=== PATIENT | female | born 1935 | race Caucasian/White ===

== ENCOUNTER 2021-05-18 16:49 | Inpatient (IN) | payer MEDICARE, OTHER ==
[~2021-05-18] VITALS: Ht 162.6 cm; Wt 89.5 kg
[~2021-05-18 16:49] MED LIST: ASPIR 8181 MG PO; BACTRIM DS TAB1 EACH PO; KEFLEX500 MG PO; LEVAQUIN500 MG PO; MACROBID 100 M100 MG PO; NITROSTAT0.4 MG SL
[2021-05-18 19:25] LABS: HEMOGLOBIN 13.8 gm/dl (12.3-15.3); RED BLOOD COUNT 4.89 M/UL (4.00-5.10); WHITE BLOOD COUNT 16.7 K/UL (4.5-11.0)
[2021-05-19 04:20] LABS: HEMOGLOBIN 11.9 gm/dl (12.3-15.3); WHITE BLOOD COUNT 13.8 K/UL (4.5-11.0)
[2021-05-19 04:24] LABS: RED BLOOD COUNT 4.29 M/UL (4.00-5.10)
[2021-05-19] MEDS ORDERED: CARVEDILOL25 MG PO (10:21)
[2021-05-19] MEDS ORDERED: ESCITALOPRAM OX10 MG PO (10:22)
[2021-05-19] MEDS ORDERED: DONEPEZIL HCL10 MG PO (10:22)
[2021-05-19] MEDS ORDERED: LOSARTAN POTASS50 MG PO (10:22)
[2021-05-19] MEDS ORDERED: ISOSORBIDE MONO30 MG PO (10:22)
[2021-05-19] MEDS ORDERED: VITAMIN D350 MC3 PO (10:23)
[2021-05-19] MEDS ORDERED: NAMENDA10 MG PO (10:23)
[2021-05-19] MEDS ORDERED: TRADJENTA5 MG PO (10:24)
[2021-05-19] MEDS ORDERED: METFORMIN HCL500 M2 PO (10:24)
[2021-05-19] MEDS ORDERED: GABAPENTIN300 MG PO (10:24)
[2021-05-19] MEDS ORDERED: SPIRIVA HANDIH18 MCG INH (10:25)
[2021-05-19] MEDS ORDERED: PROTONIX 40 MG40 M1 PO (10:25)
[2021-05-19] MEDS ORDERED: VOLTAREN ARTHRI20 GM TOP (10:25)
[2021-05-19] MEDS ORDERED: ATORVASTATIN CA40 MG PO (10:26)
[2021-05-19] MEDS ORDERED: ACETAMINOPHEN500 MG PO (10:26)
[2021-05-19] MEDS ORDERED: FUROSEMIDE20 MG PO (10:27)
[2021-05-19] MEDS ORDERED: TRAMADOL HCL50 MG PO (10:27)
[2021-05-19] MEDS ORDERED: RESTASIS1 EACH OU (10:27)
[2021-05-19] MEDS ORDERED: CICLOPIROX6.6 ML TP (10:29)
[2021-05-19] MEDS ORDERED: ZINC OXIDE60 GM TOP (10:31)
[2021-05-19] MEDS ORDERED: [UNRECOGNIZED DRUG - OTHER] TOP (10:33)
[2021-05-19] MEDS ORDERED: HYDROCODON-ACE1 EAC2 PO (17:26)
[2021-05-19] MEDS ORDERED: LOVENOX30 MG/0.3 SQ (17:26)
[2021-05-20 07:43] LABS: RED BLOOD COUNT 3.51 M/UL (4.00-5.10); WHITE BLOOD COUNT 11.9 K/UL (4.5-11.0)
[2021-05-20 07:44] LABS: HEMOGLOBIN 9.7 gm/dl (12.3-15.3)
[2021-05-20] MEDS ORDERED: GABAPENTIN300 MG PO (10:00)
--- NOTE | 2021-05-20 15:33 | NUR ---
RN HAD department director ATTEMPT TO PUT PATIENT BACK TO BED, THEY ATTEMPTED TO BUT WERE UNABLE. RN CALLED PHYSICAL THERAPY TO ASSIST department director WITH TRANSFER. PHYSICAL THERAPY AND department director GOT PATIENT INTO BED BUT PATIENT WAS NOTED TO BE LETHARGIC AND SLOW TO RESPOND TO BOTH VERBAL AND TACTILE STIMULI. RN HAD STAFF ASSIST IN GETTING BLOOD PRESSURE AND BLOOD GLUCOSE. RN HAD GIVEN PATIENT A NARCOTIC EARLIER SO PRN NARCAN WAS GIVEN. RN CALLED DR. POP TO ASSESS PATIENT AND NOTIFIED STAFF OF PATIENT'S CODE STATUS. PATIENT NOTED TO BE SPEAKING AND ANSWERING QUESTIONS APPROPRIATE TO BASELINE. MD ASSESSED PATIENT AND ORDERED RN TO CANCEL DISCHARGE ORDER AND STATED SHE WOULD REVIEW PATIENT'S CHART. BED LOCKED AND LOW. CALL LIGHT WITHIN REACH.
[2021-05-21 07:05] LABS: RED BLOOD COUNT 3.21 M/UL (4.00-5.10); WHITE BLOOD COUNT 14.7 K/UL (4.5-11.0)
[2021-05-21] MEDS ORDERED: ACETAMINOPHEN500 MG PO (10:03)
[2021-05-21] MEDS ORDERED: NEURONTIN100 MG PO (12:14)
--- NOTE | 2021-05-21 13:22 | NUR ---
RN CALLED REPORT TO KALI ROMEO. RN INFORMED AGUEDA THAT BLADDER TRAINING MUST BE INITIATED PRIOR TO REMOVAL OF AVILA CATHETER AT RECEIVING FACILITY.
--- NOTE | 2021-05-21 13:57 | NUR ---
RN CALLED REPORT TO [facility].
== END 2021-05-21 15:14 | DRG 480 ==
LOC: ER1 16:49 → PROG CARE 18:59 → CDU 18:59 → M/S 18:59 → PROG CARE 23:00 → M/S 05-19 19:44
PROVIDERS: Emergency Medicine; Orthopaedic Surgery; Physician Assistant; ADMIT Internal Medicine
PROC: 0QS706Z Reposition Left Upper Femur with Intramedullary Internal Fixation Device, Open Approach (ICD-10-PCS; principal; 2021-05-19 11:00)
DX: S72.142A Displaced intertrochanteric fracture of left femur, initial encounter for closed fracture (principal); J96.21 Acute and chronic respiratory failure with hypoxia; I69.351 Hemiplegia and hemiparesis following cerebral infarction affecting right dominant side; I13.0 Hypertensive heart and chronic kidney disease with heart failure and stage 1 through stage 4 chronic kidney disease, or unspecified chronic kidney disease; Z20.822 Contact with and (suspected) exposure to COVID-19; W01.0XXA Fall on same level from slipping, tripping and stumbling without subsequent striking against object, initial encounter; I25.10 Atherosclerotic heart disease of native coronary artery without angina pectoris; J44.9 Chronic obstructive pulmonary disease, unspecified; K21.9 Gastro-esophageal reflux disease without esophagitis; E11.51 Type 2 diabetes mellitus with diabetic peripheral angiopathy without gangrene; E11.40 Type 2 diabetes mellitus with diabetic neuropathy, unspecified; I73.9 Peripheral vascular disease, unspecified; Z96.619 Presence of unspecified artificial shoulder joint; R32 Unspecified urinary incontinence; I16.0 Hypertensive urgency; F03.90 Unspecified dementia, unspecified severity, without behavioral disturbance, psychotic disturbance, mood disturbance, and anxiety; M81.0 Age-related osteoporosis without current pathological fracture; N18.30 Chronic kidney disease, stage 3 unspecified; G93.89 Other specified disorders of brain; E11.22 Type 2 diabetes mellitus with diabetic chronic kidney disease; Z66 Do not resuscitate; N28.1 Cyst of kidney, acquired; F32.A Depression, unspecified; Z90.710 Acquired absence of both cervix and uterus; Z90.49 Acquired absence of other specified parts of digestive tract; Z88.0 Allergy status to penicillin; Z88.8 Allergy status to other drugs, medicaments and biological substances; Z79.82 Long term (current) use of aspirin; Z79.899 Other long term (current) drug therapy; Z79.84 Long term (current) use of oral hypoglycemic drugs
CPT/HCPCS: 0240U; 36415; 70450; 71045; 71275; 72125; 72128; 72131; 72192; 73502; 76000; 80048; 80053; 80076; 81001; 82550; 82553; 82962; 83735; 84484; 85025; 85027; 85379; 85610; 86850; 86900; 86901; 87040; 87086; 92610; 93005; 94640; 94664; 94760; 96374; 96375; 97110; 97110-GP-CQ; 97162; 97166; 97530; 97530-GP-CQ; 99284; C1713; J0690; J1100; J1650; J2270; J2310; J2370; J2405; J2704; J3010; J7030; J7120; Q9967

== ENCOUNTER → 2021-07-15 | Outpatient (CLI) | payer MEDICARE, OTHER ==
[~2021-07-15] MED LIST changes: +ACETAMINOPHEN500 MG PO; +ATORVASTATIN CA40 MG PO; +CARVEDILOL25 MG PO; +CICLOPIROX6.6 ML TP; +DONEPEZIL HCL10 MG PO; +ESCITALOPRAM OX10 MG PO; +FUROSEMIDE20 MG PO; +GABAPENTIN300 MG PO; +HYDROCODON-ACE1 EAC2 PO; +ISOSORBIDE MONO30 MG PO; +LOSARTAN POTASS50 MG PO; +LOVENOX30 MG/0.3 SQ; +METFORMIN HCL500 M2 PO; +NAMENDA10 MG PO; +NEURONTIN100 MG PO; +PROTONIX 40 MG40 M1 PO; +RESTASIS1 EACH OU; +SPIRIVA HANDIH18 MCG INH; +TRADJENTA5 MG PO; +TRAMADOL HCL50 MG PO; +VITAMIN D350 MC3 PO; +VOLTAREN ARTHRI20 GM TOP; +ZINC OXIDE60 GM TOP; +[UNRECOGNIZED DRUG - OTHER] TOP
[2021-07-15 17:24] LABS: RED BLOOD COUNT 3.6 M/UL (4.00-5.10); WHITE BLOOD COUNT 8.4 K/UL (4.5-11.0)
[2021-07-15 17:51] LABS: BUN/CREATININE RATIO 29 (0-10)
== END ==
LOC: LAB 16:53
PROVIDERS: Emergency Medicine
DX: R41.82 Altered mental status, unspecified (principal)
CPT/HCPCS: 80053; 85025

== ENCOUNTER 2021-07-21 11:14 | Inpatient (IN) | payer MEDICARE, OTHER ==
[~2021-07-21] VITALS: Ht 162.6 cm; Wt 78.0 kg
[2021-07-21 11:43] LABS: HEMOGLOBIN 11.4 gm/dl (12.3-15.3); RED BLOOD COUNT 4.12 M/UL (4.00-5.10); WHITE BLOOD COUNT 12.4 K/UL (4.5-11.0)
[2021-07-21 12:04] LABS: BUN/CREATININE RATIO 37 (0-10)
[2021-07-21] MEDS ORDERED: TYLENOL EXTRA500 MG PO (15:48)
[2021-07-21] MEDS ORDERED: HYDROCODON-ACE1 EAC4 PO (15:50)
[2021-07-21] MEDS ORDERED: TRAMADOL HCL50 MG PO (15:52)
[2021-07-21] MEDS ORDERED: ARTIFICIAL TEAR15 M6 OU (15:52)
[2021-07-21] MEDS ORDERED: SODIUM CHLORIDE3 ML INH (15:53)
[2021-07-21] MEDS ORDERED: MEGESTROL400 MG/12 PO (15:53)
[2021-07-22 04:19] LABS: HEMOGLOBIN 11.3 gm/dl (12.3-15.3); RED BLOOD COUNT 4.03 M/UL (4.00-5.10); WHITE BLOOD COUNT 12.8 K/UL (4.5-11.0)
[2021-07-22 04:30] LABS: BUN/CREATININE RATIO 35 (0-10)
[2021-07-22 12:34] LABS: CANDIDA ALBICANS Not Detected (Negative); CANDIDA KRUSEI Not Detected (Negative); CANDIDA TROPICALIS Not Detected (Negative); ESCHERICHIA COLI Not Detected (Negative); HAEMOPHILUS INFLUENZAE Not Detected (Negative); KLEBSIELLA OXYTOCA Not Detected (Negative); KLEBSIELLA PNEUMONIAE Not Detected (Negative); KPC-CARBAPENEM-RESISTANCE GENE Not Detected (Negative); PROTEUS Not Detected (Negative); PSEUDOMONAS AERUGINOSA Not Detected (Negative); SERRATIA MARCESANS Not Detected (Negative); STAPHYLOCOCCUS Not Detected (Negative); STAPHYLOCOCCUS AUREUS Not Detected (Negative); STREP AGALACTIAE (GROUP B) Not Detected (Negative); STREP PYOGENES (GROUP A) Not Detected (Negative); STREPTOCOCCUS Not Detected (Negative); vanA/B (VANCOMYCIN RESIST GENE Not Detected (Negative)
--- NOTE | 2021-07-22 18:50 | NUR ---
PT'S SON VISITED TODAY HE TALKED I LENGTH ABOUT HIS MOTHERS WISHES THAT WERE TO NOT BE HOOKED TO ANYTHING LIKE A VENT OR HAVE TUBE IN HER BELLY. HE ASKED THAT WE NOT TRY TO PLACE ANOTHER NG TUBE. I ASKED HIM TO PLEASE VOICE HIS THOUGHTS AND WISHES WITH DR DAVIS WHEN SHE MADE ROUNDS THIS MORNING.
[2021-07-23 11:59] LABS: HEMOGLOBIN 11.6 gm/dl (12.3-15.3); RED BLOOD COUNT 4.15 M/UL (4.00-5.10); WHITE BLOOD COUNT 10.5 K/UL (4.5-11.0)
[2021-07-23 12:43] LABS: BUN/CREATININE RATIO 21 (0-10)
[2021-07-24 06:34] LABS: HEMOGLOBIN 10.4 gm/dl (12.3-15.3); RED BLOOD COUNT 3.78 M/UL (4.00-5.10)
[2021-07-24 06:38] LABS: WHITE BLOOD COUNT 7.2 K/UL (4.5-11.0)
[2021-07-24 06:54] LABS: BUN/CREATININE RATIO 21 (0-10)
[2021-07-25 04:42] LABS: BUN/CREATININE RATIO 20 (0-10)
[2021-07-26 04:59] LABS: BUN/CREATININE RATIO 13 (0-10)
[2021-07-27 04:09] LABS: BUN/CREATININE RATIO 9 (0-10)
[2021-07-28 06:53] LABS: BUN/CREATININE RATIO 9 (0-10)
[2021-07-29 02:59] LABS: HEMOGLOBIN 10.5 gm/dl (12.3-15.3); RED BLOOD COUNT 3.68 M/UL (4.00-5.10); WHITE BLOOD COUNT 8.2 K/UL (4.5-11.0)
[2021-07-29 03:12] LABS: BUN/CREATININE RATIO 10 (0-10)
[2021-07-30] MEDS ORDERED: HYDROCODON-ACE1 EAC4 PO (08:55)
[2021-07-30] MEDS ORDERED: NORVASC5 MG PO (08:55)
[2021-07-30] MEDS ORDERED: STIMULANT LAXA1 EACH PO (08:55)
[2021-07-30] MEDS ORDERED: POTASSIUM CHLO10 ME1 PO (08:59)
== END 2021-07-30 15:56 | DRG 871 ==
LOC: ER1 11:14 → MED SURG 4 14:17 → CDU 14:17 → MED SURG 4 16:32
PROVIDERS: Emergency Medicine; Internal Medicine; Internal Medicine Infectious Disease; Physician Assistant; ADMIT Internal Medicine
PROC: 0DH63UZ Insertion of Feeding Device into Stomach, Percutaneous Approach (ICD-10-PCS; principal; 2021-07-21)
PROC: 8E0ZXY6 Isolation (ICD-10-PCS; 2021-07-21)
PROC: 3E0333Z Introduction of Anti-inflammatory into Peripheral Vein, Percutaneous Approach (ICD-10-PCS; 2021-07-21)
PROC: 3E03329 Introduction of Other Anti-infective into Peripheral Vein, Percutaneous Approach (ICD-10-PCS; 2021-07-21)
PROC: B24BZZZ Ultrasonography of Heart with Aorta (ICD-10-PCS; 2021-07-29)
DX: A41.89 Other specified sepsis (principal); U07.1 COVID-19; G93.41 Metabolic encephalopathy; J18.9 Pneumonia, unspecified organism; I50.33 Acute on chronic diastolic (congestive) heart failure; J96.11 Chronic respiratory failure with hypoxia; N30.00 Acute cystitis without hematuria; E86.0 Dehydration; R13.10 Dysphagia, unspecified; E11.9 Type 2 diabetes mellitus without complications; F03.90 Unspecified dementia, unspecified severity, without behavioral disturbance, psychotic disturbance, mood disturbance, and anxiety; E87.70 Fluid overload, unspecified; I25.10 Atherosclerotic heart disease of native coronary artery without angina pectoris; R53.81 Other malaise; B96.4 Proteus (mirabilis) (morganii) as the cause of diseases classified elsewhere; I11.0 Hypertensive heart disease with heart failure; L89.152 Pressure ulcer of sacral region, stage 2; Z86.73 Personal history of transient ischemic attack (TIA), and cerebral infarction without residual deficits; Z79.899 Other long term (current) drug therapy; Z88.0 Allergy status to penicillin
CPT/HCPCS: ECHO; 36415; 70551; 71045; 71260; 74018; 80048; 80053; 80202; 81001; 82962; 83605; 83735; 83880; 84100; 84132; 85025; 87040; 87077; 87086; 87150; 87186; 92526; 92610; 93306; 94640; 94664; 94760; 96374; 97162; 97166; 99285; A6212; J0360; J0692; J0696; J1650; J1940; J1956; J3370; J3475; J3480; J7030; J7070; Q9967; U0002